=== PATIENT | male | born 1950 | race Hispanic/Latino ===

== ENCOUNTER 2019-07-08 00:59 | Emergency (ER) | payer MEDICARE, MEDICAID ==
[2019-07-08] MEDS ORDERED: LIDOCAINE-MPF (1%) 10 MG/1 ML VIAL 5 ML INFILTRATI ONE (02:11)
[2019-07-08] MEDS ORDERED: ACETAMINOPHEN 325 MG TAB PO ONE (02:12)
--- NOTE | 2019-07-08 02:29 | Emergency Department Report ---
ED General Adult HPI - General Chief complaint: Earache Stated complaint: BLEEDING FROM LEFT EAR Source: patient, EMS Mode of arrival: Wheelchair Limitations: No Limitations - History of Present Illness Initial comments: Patient is 68-year-old white male with a history of A. fib, COPD and chronic neck and back pain as well as hepatitis C who presents to the ED with complaint of acute onset persistent severe left ear pain with bleeding after a suspected insect entered into the left ear 24 hours ago. Patient states that each movement of the insect caused the pain although in the last 12 hours he has not felt any movement of the insect. Patient states that the left ear bleeding is well controlled at this time. Patient denies hearing loss, dizziness, headache, traumatic injury, nausea, vomiting, shortness of breath, fever or chills and sore throat. MD Complaint: left ear pain, bleeding, foreign body in left ear -: Sudden, hour(s) (24) Location: face (left ear) Radiation: non-radiation Severity scale (0 -10): 6 Quality: aching, sharp Consistency: constant Improves with: none Worsens with: none Associated Symptoms: denies other symptoms. denies: confusion, chest pain, cough, diaphoresis, fever/chills, headaches, loss of appetite, malaise, nausea/vomiting, rash, seizure, shortness of breath, syncope, weakness Treatments Prior to Arrival: none - Related Data Previous Rx's Medication Instructions Recorded Last Taken Type Acetaminophen [Tylenol] 500 mg PO Q6HR #15 tablet 07/08/19 Unknown Rx Ciprofloxacin HCl/Dexameth 1 drop OT BID #7.5 ml 07/08/19 Unknown Rx [Ciprodex Otic Suspension] Allergies Allergy/AdvReac Type Severity Reaction Status Date / Time codeine Allergy Itching Verified 07/08/19 01:13 ED Review of Systems ROS: Stated complaint: BLEEDING FROM LEFT EAR Other details as noted in HPI Constitutional: denies: chills, fever Eyes: denies: eye pain, eye discharge, vision change ENT: ear pain (Left ear pain with bleeding), other (Foreign body in the left ear). denies: throat pain Respiratory: denies: cough, shortness of breath, wheezing Cardiovascular: denies: chest pain, palpitations Endocrine: no symptoms reported Gastrointestinal: denies: abdominal pain, nausea, diarrhea Genitourinary: denies: urgency, dysuria Musculoskeletal: denies: back pain, joint swelling, arthralgia Skin: denies: rash, lesions Neurological: denies: headache, weakness, paresthesias Psychiatric: denies: anxiety, depression Hematological/Lymphatic: denies: easy bleeding, easy bruising ED Past Medical Hx - Past Medical History Previous Medical History?: Yes Hx COPD: Yes Additional medical history: 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 afib. Hep c - Surgical History Past Surgical History?: Yes Hx Pacemaker: Yes Additional Surgical History: left hip replacement. - Social History Smoking Status: Current Every Day Smoker Substance Use Type: Alcohol - Medications Home Medications: Home Medications Medication Instructions Recorded Confirmed Last Taken Type Acetaminophen [Tylenol] 500 mg PO Q6HR #15 tablet 07/08/19 Unknown Rx Ciprofloxacin HCl/Dexameth 1 drop OT BID #7.5 ml 07/08/19 Unknown Rx [Ciprodex Otic Suspension] ED Physical Exam - General Limitations: No Limitations General appearance: alert, in no apparent distress - Head Head exam: Present: atraumatic, normocephalic, normal inspection - Eye Eye exam: Present: normal appearance, PERRL, EOMI Pupils: Present: normal accommodation - ENT ENT exam: Present: normal exam, normal orophraynx, mucous membranes moist, other (Left external ear canal abrasion with blood clots and tenderness; No foreign body) - Neck Neck exam: Present: normal inspection, full ROM. Absent: tenderness - Respiratory Respiratory exam: Present: normal lung sounds bilaterally. Absent: respiratory distress, wheezes, rales, rhonchi, chest wall tenderness, accessory muscle use, decreased breath sounds - Cardiovascular Cardiovascular Exam: Present: regular rate, normal rhythm, normal heart sounds. Absent: systolic murmur, diastolic murmur, rubs, gallop - GI/Abdominal GI/Abdominal exam: Present: soft, normal bowel sounds. Absent: distended, tenderness, guarding, hyperactive bowel sounds - Extremities Exam Extremities exam: Present: normal inspection, full ROM, normal capillary refill - Back Exam Back exam: Present: normal inspection, full ROM. Absent: tenderness, CVA tenderness (R), muscle spasm, paraspinal tenderness - Neurological Exam Neurological exam: Present: alert, oriented X3, CN II-XII intact, normal gait, reflexes normal - Psychiatric Psychiatric exam: Present: normal affect, normal mood - Skin Skin exam: Present: warm, dry, intact, normal color. Absent: rash ED Course Vital Signs 07/08/19 01:10 Temperature 97.6 F Pulse Rate 91 H Respiratory 18 Rate Blood Pressure 106/63 O2 Sat by Pulse 96 Oximetry ED Medical Decision Making - Medical Decision Making This is 68-year-old white male with a history of A. fib, COPD and chronic neck and back pain as well as hepatitis C who presents to the ED with complaint of acute onset persistent severe left ear pain with bleeding after a suspected insect entered into the left ear 24 hours ago. Patient states that each movement of the insect caused the pain although in the last 12 hours he has not felt any movement of the insect. Patient states that the left ear bleeding is well controlled at this time. In the ED, patient is alert and oriented x3 and is not in distress. Patient was treated for pain in the ED and left ear was extensively irrigated for any foreign bodies. Chunks of blood clots were expelled from the left ear but there was no foreign body such as an insect or otherwise. Patient tolerated the procedure well and postprocedure evaluation showed patient hearing acuity was normal bilaterally and the bleeding in the left ear resolved. Patient was discharged home on antibiotic eardrops and advised to follow-up with his primary care physician in 5 to 7 days for reevaluation or return to the ED immediately if symptoms get worse. - Differential Diagnosis ear foreign body; Left ear injury; Hearing loss; otitis media Critical care attestation.: If time is entered above; I have spent that time in minutes in the direct care of this critically ill patient, excluding procedure time. ED Disposition Clinical Impression: Acute pain of left ear, Foreign body in left ear, initial encounter, Injury of left inner ear Disposition: DC-01 TO HOME OR SELFCARE Is pt being admited?: No Does the pt Need Aspirin: No Condition: Stable Instructions: Ear Foreign Body (ED), Otitis Externa (ED), Earache (ED) Additional Instructions: Take pain medication with food as needed, apply the eardrops to the affected ears advised. Return to the ED immediately if symptoms get worse. Otherwise follow-up with your primary care physician in 5 to 7 days for reevaluation. Prescriptions: Acetaminophen [Tylenol] 500 mg PO Q6HR #15 tablet Ciprofloxacin HCl/Dexameth [Ciprodex Otic Suspension] 1 drop OT BID #7.5 ml Referrals: [facility] [Provider Group] - 3-5 Days Time of Disposition: 02:35 Print Language: FRISIAN
[2019-07-09 13:01] VITALS: BP 109/73
== END 2019-07-08 06:03 | disposition home or self-care (01) ==
LOC: ED 00:59
DX: T16.2XXA Foreign body in left ear, initial encounter (principal); J44.9 Chronic obstructive pulmonary disease, unspecified; F17.200 Nicotine dependence, unspecified, uncomplicated; Z98.890 Other specified postprocedural states; Z79.899 Other long term (current) drug therapy; W45.8XXA Other foreign body or object entering through skin, initial encounter; Y93.89 Activity, other specified; Y92.89 Other specified places as the place of occurrence of the external cause; Y99.8 Other external cause status